=== PATIENT | female | born 1950 | race Caucasian/White ===

== ENCOUNTER → 2017-03-10 | Outpatient (CLI) | payer MEDICARE, OTHER ==
--- NOTE | 2017-03-14 12:53 | RADIOLOGY REPORT PS360 ---
DIG MAMM-SCREEN LETY W/CAD CAD Screening ORDERING PHYSICIAN : Won Morris MD PATIENT AGE: 66 years GENDER: Female COMPARISON: Previous mammograms: February 2016, January 2015, December 2013. INDICATION: Routine screening TECHNIQUE: Standard CC and MLO images were obtained. R2 CAD reviewed. FINDINGS: Lower breast bilaterally for age with moderate fatty replacement . No dominant mass nor suspicious calcification. No architectural distortion. RIGHT BREAST There are some tiny calcifications inferior right breast which are similar to previous studies. Only slightly denser. More likely vascular calcifications on based on MLO view given the relative stability I would suggest follow-up in one year Ongoing. LEFT BREAST: No significant change no new areas of concern follow-up in one year bilateral adequate IMPRESSION: No significant interval change. Bilateral follow-up in one year recommended would be encouraged BI-RADS CATEGORY: 2_Benign RECOMMENDED FOLLOWUP: 12M 12 MONTH FOLLOW-UP (A letter has been sent to the patient regarding results of the study.)
== END ==
LOC: RAD 16:14
DX: Z12.31 Encounter for screening mammogram for malignant neoplasm of breast (principal)
CPT/HCPCS: G0202